=== PATIENT | female | born 1975 | race African-American/Black ===

== ENCOUNTER 2020-01-22 23:14 | Emergency (ER) | payer OTHER ==
[~2020-01-22] VITALS: Ht 157.5 cm; Wt 88.9 kg
[2020-01-23] MEDS ORDERED: IBUPROFEN 600 MG TAB PO STA (00:32)
--- NOTE | 2020-01-23 00:42 | Emergency Department Note ---
History of Present Illnes History of Present Illness Chief Complaint: Back Pain History of Present Illness This is a 44 year old female presents to the ED for acute on chronic back pain . Arrival Mode: Car Interpreter And Translator Required: No Onset (how long ago): second(s) Location: midline lumbar region Radiation: Reports back Severity: mild Onset quality: gradual Duration (how long): day(s) (1) Timing of current episode: constant Progression: waxing and waning Chronicity: recurrent Context: Denies trauma/injury Relieving factors: rest Exacerbating factors: immobilization Associated symptoms: Reports denies other symptoms Treatments prior to arrival: none Previous service: tests performed, one or more referrals, re-evaluation Past Medical/Family History Physician Review I have reviewed the patient's past medical and family history. Any updates have been documented here. Past Medical History Recent Fever: No Clinical Suspicion of Infectio: No New/Unexplained Change in Ment: No Other Medical History: Herniated disc lumbar regoin Social History Smoking Cessation: Never Smoker Alcohol Use: None Any Illegal Drug Use: No Review of Systems Review of Systems Constitutional: Reports no symptoms EENTM: Reports no symptoms Cardiovascular: Reports no symptoms Respiratory: Reports no symptoms Gastrointestinal: Reports no symptoms Genitourinary: Reports no symptoms Musculoskeletal: Reports back pain Integumentary: Reports no symptoms Neurological: Reports no symptoms Psychological: Reports no symptoms Endocrine: Reports no symptoms Hematological/Lymphatic: Reports no symptoms Physical Exam Related Data Vital signs reviewed: Yes Physical Exam CONSTITUTIONAL Constitutional: Present well-developed, Present well-nourished HENT HENT: Present normocephalic, Present atraumatic, Present oropharynx clear/moist, Present nose normal HENT L/R: Present left ext ear normal, Present right ext ear normal EYES Eyes: Reports PERRL, Reports conjunctivae normal NECK Neck: Present ROM normal PULMONARY Pulmonary: Present effort normal, Present breath sounds normal CARDIOVASCULAR Cardiovascular: Present regular rhythm, Present heart sounds normal, Present capillary refill normal, Present normal rate GASTROINTESTINAL Abdominal: Present soft, Present nontender, Present bowel sounds normal GENITOURINARY Genitourinary: Present exam deferred SKIN Skin: Present warm, Present dry MUSCULOSKELETAL Musculoskeletal: Present tenderness (midline lumbar) NEUROLOGICAL Neurological: Present alert, Present oriented x 3, Present no gross motor or sensory deficits PSYCHOLOGICAL Psychological: Present mood/affect normal, Present judgement normal Assessment & Plan Medical Decision Making MDM 44 yof with 20 year old h/o of chronic back pain. patient without saddle anesthesia or loss of bowel or bladder control. Patient give Rx motrin 600 mg with f/u to Dr Sewell Assessment & Plan Final Impression: (1) Acute exacerbation of chronic low back pain Depart Disposition: HOME, SELF-CARE Medications in the ED Ibuprofen 600 mg ONCE STAT PO ; Start 01/23/20 at 00:32; Stop 01/23/20 at 00:33; Status UNV DIANELYS MCLAUGHLIN DO Jan 23, 2020 00:42
== END 2020-01-23 00:45 | disposition home or self-care (01) ==
LOC: ER 23:14
DX: M54.5 Low back pain (principal); G89.29 Other chronic pain
CPT/HCPCS: 99283

== ENCOUNTER 2020-11-06 01:42 | Emergency (ER) | payer OTHER ==
[~2020-11-06] VITALS: Ht 157.5 cm; Wt 88.9 kg
[2020-11-06] MEDS ORDERED: CYCLOBENZAPRINE HCL 10 MG TAB PO ONE (02:00)
[2020-11-06] MEDS ORDERED: HYDROCODONE/APAP 10MG-325MG TAB PO ONE (02:00)
[2020-11-06] MEDS ORDERED: CYCLOBENZAPRINE5 MG PO (02:03)
[2020-11-06] MEDS ORDERED: ULTRAM 50MG50 MG PO (02:03)
[2020-11-06 02:56] VITALS: BP 133/88
== END 2020-11-06 02:52 | disposition home or self-care (01) ==
LOC: ER 02:15
DX: M54.5 Low back pain (principal); M51.36 Other intervertebral disc degeneration, lumbar region
CPT/HCPCS: 99282

== ENCOUNTER 2022-05-09 00:41 | Emergency (ER) | payer OTHER ==
[~2022-05-09] VITALS: Ht 157.5 cm; Wt 88.9 kg
[~2022-05-09 00:41] MED LIST: CYCLOBENZAPRINE5 MG PO; ULTRAM 50MG50 MG PO
[2022-05-09] MEDS ORDERED: IBUPROFEN800 MG PO (00:55)
[2022-05-09] MEDS ORDERED: KETOROLAC TROMETHAMINE 60 MG/2 ML VIAL IM ONE (01:00)
[2022-05-09] MEDS ORDERED: KETOROLAC TROMETHAMINE 60 MG/2 ML VIAL ONE (01:06)
== END 2022-05-09 01:15 | disposition home or self-care (01) ==
LOC: ER 00:45
DX: M54.41 Lumbago with sciatica, right side (principal); G89.29 Other chronic pain; W18.49XA Other slipping, tripping and stumbling without falling, initial encounter; Y93.01 Activity, walking, marching and hiking; Y92.89 Other specified places as the place of occurrence of the external cause; I10 Essential (primary) hypertension; J45.909 Unspecified asthma, uncomplicated; F41.9 Anxiety disorder, unspecified
CPT/HCPCS: 99282; J1885